=== PATIENT | male | born 1940 | race Caucasian/White ===

== ENCOUNTER 2022-08-31 16:11 | Emergency (ER) | payer MEDICARE, OTHER ==
[2022-08-31] MEDS ORDERED: Lidocaine 1% with EPINEPHrine 1:100,000 10 ML MDV INFILT ONE (16:12)
== END 2022-08-31 17:20 | disposition home or self-care (01) ==
LOC: FB.ED 16:11
DX: L76.22 Postprocedural hemorrhage of skin and subcutaneous tissue following other procedure (principal); C44.90 Unspecified malignant neoplasm of skin, unspecified; Z98.890 Other specified postprocedural states; Y83.8 Other surgical procedures as the cause of abnormal reaction of the patient, or of later complication, without mention of misadventure at the time of the procedure
CPT/HCPCS: 99283